=== PATIENT | female | born 1950 | race Caucasian/White ===

== ENCOUNTER 2019-07-16 15:25 | Emergency (ER) | payer MEDICARE, OTHER ==
[2019-07-16 15:49] VITALS: BP 158/85; PULSE 70
--- NOTE | 2019-07-16 16:17 | EDM.PDOC ---
ED HPI GENERAL MEDICAL PROBLEM - General Chief Complaint: Lower Extremity Injury/Pain Stated Complaint: R LEG PAIN Time Seen by Provider: 07/16/19 15:53 Source of Information: Reports: Patient History Limitations: Reports: No Limitations - History of Present Illness INITIAL COMMENTS - FREE TEXT/NARRATIVE: Patient is a 69-year-old female who presents to the emergency department with a 4-day history of right upper leg pain. She describes it as a dull ache. Today while walking to the [facility], her pain worsened and she became acutely short of breath. She was able to continue onto the garden and finished her work, however she presents with concerned that she may have a DVT and/or PE. 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 She takes aspirin 325 mg daily for this. She denies any shortness of breath at this time. States that the episode passed rather quickly. She denies any noticeable warmth or swelling to her right leg over the last few days. She denies any chest pain at the time of the episode or at this time. Right Upper Leg Pain Score (Numeric/FACES): 3 - Related Data Allergies Allergy/AdvReac Type Severity Reaction Status Date / Time No Known Allergies Allergy Verified 07/16/19 15:59 Home Meds: Home Meds Famotidine [Pepcid] 20 mg PO DAILY #90 tablet 11/07/14 [Rx] Levothyroxine 25 mcg PO DAILY 11/07/14 [History] Rivaroxaban [Xarelto] 15 mg PO DAILY 11/07/14 [History] Past Medical History - Past Health History Medical/Surgical History: Denies Medical/Surgical History Cardiovascular History: Reports: Other (See Below) Other Cardiovascular History: DVT Social & Family History - Tobacco Use Smoking Status *Q: Never Smoker Review of Systems - Review of Systems Review Of Systems: See Below Constitutional: Reports: No Symptoms Eyes: Reports: No Symptoms Ears: Reports: No Symptoms Nose: Reports: No Symptoms Mouth/Throat: Reports: No Symptoms Respiratory: Reports: Shortness of Breath. Denies: Wheezing, Pleuritic Chest Pain, Cough Cardiovascular: Reports: No Symptoms. Denies: Chest Pain GI/Abdominal: Reports: No Symptoms Genitourinary: Reports: No Symptoms Musculoskeletal: Reports: Leg Pain Skin: Reports: No Symptoms Neurological: Reports: No Symptoms Psychiatric: Reports: No Symptoms ED EXAM, GENERAL - Physical Exam Exam: See Below Exam Limited By: No Limitations General Appearance: Alert, WD/WN, No Apparent Distress Respiratory/Chest: No Respiratory Distress, Lungs Clear, Normal Breath Sounds, No Accessory Muscle Use, Chest Non-Tender Cardiovascular: Normal Peripheral Pulses, Regular Rate, Rhythm, No Edema, No Gallop, No JVD, No Murmur, No Rub Extremities: Normal Inspection, Normal Range of Motion, No Pedal Edema, Normal Capillary Refill, Other (Mild tenderness to the right upper lateral leg. No obvious redness or warmth. There is an area of posterior ecchymosis that she states has been there for a few days after bumping her leg.) Neurological: Alert, Oriented, CN II-XII Intact, Normal Cognition, Normal Gait, Normal Reflexes, No Motor/Sensory Deficits Psychiatric: Normal Affect, Normal Mood Skin Exam: Warm, Dry, Intact, Normal Color, No Rash EKG INTERPRETATION EKG Date: 07/16/19 Time: 16:19 Rhythm: NSR Rate (Beats/Min): 71 [place]: Normal P-Wave: Present QRS: Normal ST-T: Normal QT: Normal EKG Interpretation Comments: Sinus rhythm at 74 bpm Decreased voltage precordial leads Diffuse T wave changes EKG interpreted by Dr. Yumi MD Course - Vital Signs Last Recorded V/S: Last Vital Signs Temp 98.0 F 07/16/19 15:47 Pulse 70 07/16/19 15:47 Resp 18 07/16/19 15:47 BP 158/85 H 07/16/19 15:47 Pulse Ox 96 07/16/19 15:47 - Orders/Labs/Meds Orders: Active Orders 24 hr Category Date Time Status EKG Documentation Completion [RC] STAT Care 07/16/19 16:10 Active Chest PE [Ang Chest] [CT] Stat Exams 07/16/19 17:16 Taken VL Duplex Lwr Ext Veins Ltd Rt [US] Stat Exams 07/16/19 16:06 Taken Labs: Laboratory Tests 07/16/19 07/16/19 07/16/19 Range/Units 16:19 16:19 16:19 WBC 7.60 (3.98-10.04) K/mm3 RBC 4.78 (3.98-5.22) M/mm3 Hgb 14.5 (11.2-15.7) gm/dl Hct 44.9 (34.1-44.9) % MCV 93.9 (79.4-94.8) fl MCH 30.3 (25.6-32.2) pg MCHC 32.3 (32.2-35.5) g/dl RDW Std Deviation 44.0 (36.4-46.3) fL Plt Count 267 (182-369) K/mm3 MPV 9.7 (9.4-12.3) fl Neut % (Auto) 68.6 (34.0-71.1) % Lymph % (Auto) 17.4 L (19.3-51.7) % [place] % (Auto) 9.7 (4.7-12.5) % Eos % (Auto) 3.7 (0.7-5.8) Baso % (Auto) 0.5 (0.1-1.2) % Neut # (Auto) 5.21 (1.56-6.13) K/mm3 Lymph # (Auto) 1.32 (1.18-3.74) K/mm3 [place] # (Auto) 0.74 H (0.24-0.36) K/mm3 Eos # (Auto) 0.28 (0.04-0.36) K/mm3 Baso # (Auto) 0.04 (0.01-0.08) K/mm3 D-Dimer, Quantitative 0.78 H (0.19-0.50) mg/L Sodium 141 (136-145) mEq/L Potassium 4.3 (3.5-5.1) mEq/L Chloride 106 (98-107) mEq/L Carbon Dioxide 25 (21-32) mEq/L Anion Gap 14.3 (5-15) BUN 12 (7-18) mg/dL Creatinine 0.8 (0.55-1.02) mg/dL Est Cr Clr Drug Dosing 58.12 mL/min Estimated GFR (MDRD) > 60 (>60) mL/min BUN/Creatinine Ratio 15.0 (14-18) Glucose 94 (80-115) mg/dL Calcium 8.4 L (8.5-10.1) mg/dL Total Bilirubin 0.5 (0.2-1.0) mg/dL AST 22 (15-37) U/L ALT 21 (14-59) U/L Alkaline Phosphatase 103 (46-116) U/L Troponin I < 0.017 (0.00-0.056) ng/mL Total Protein 6.7 (6.4-8.2) g/dl Albumin 3.6 (3.4-5.0) g/dl Globulin 3.1 gm/dL Albumin/Globulin Ratio 1.2 (1-2) Meds: Medications Discontinued Medications Generic Name Dose Route Start Last Admin Trade Name Freq PRN Reason Stop Dose Admin Sodium Chloride 1,000 mls @ 150 mls/hr 07/16/19 17:30 07/16/19 17:56 Normal Saline IV 150 mls/hr ASDIRECTED JESIKA Administration Sodium Chloride 100 mls @ 75 mls/hr 07/16/19 17:30 07/16/19 17:41 Normal Saline IV 75 mls/hr ASDIRECTED JESIKA Administration Iopamidol 100 ml 07/16/19 17:25 07/16/19 17:41 Isovue-370 (76%) IVPUSH 07/16/19 17:26 100 ml ONETIME ONE Administration Sodium Chloride 10 ml 07/16/19 17:25 07/16/19 17:41 Saline Flush FLUSH 10 ml ONETIME PRN Administration IV FLUSH - Re-Assessments/Exams Free Text/Narrative Re-Assessment/Exam: 07/16/19 18:16 Hematology was significant for d-dimer slightly elevated at 0.78. Was otherwise unremarkable. Ultrasound of the right leg was negative for any signs of DVT. CT angiogram of the chest showed no pulmonary emboli. Discussed these findings with the patient. Her right leg pain may be a result of muscle strain , however discussed that if this becomes an ongoing issue and does not improve over the next few days, would recommend that she follow-up in the clinic for ongoing management. Discharge instructions as documented. Departure - Departure Time of Disposition: 18:16 Disposition: Home, Self-Care 01 Condition: Good Clinical Impression: Leg pain, right - Discharge Information *PRESCRIPTION DRUG MONITORING PROGRAM REVIEWED*: No *COPY OF PRESCRIPTION DRUG MONITORING REPORT IN PATIENT AALIYAH: No Instructions: Muscle Strain, [id number] Referrals: Alea Zamora ART THERAPIST [Primary Care Provider] - Forms: ED Department Discharge Additional Instructions: You were seen in the emergency department today for right leg pain and an episode of shortness of breath earlier in the day. Your work-up included blood work, an EKG of your heart, and ultrasound of your right leg, and a CT angiogram of your chest. Your work-up was found to be overall normal. There is no signs of a blood clot in your leg. There are no blood clots found in the vasculature of your lungs. As we discussed, the pain in your right leg may be due to a muscle strain. You may use [id number] Tylenol as needed for pain. Heat over the area of pain may also be beneficial. If you find that over the next few days the pain is not improving or is worsening in any way, I would recommend that you follow-up with your primary care provider for further evaluation. If you experience any new or worsening symptoms of concern, please do not hesitate to return to the emergency department. Sepsis Event Note - Evaluation Sepsis Screening Result: No Definite Risk - Focused Exam Vital Signs: Vital Signs Temp Pulse Resp BP Pulse Ox 07/16/19 15:47 98.0 F 70 18 158/85 H 96 Date Exam was Performed: 07/16/19 Time Exam was Performed: 21:49 - My Orders Last 24 Hours: My Active Orders 07/16/19 16:06 VL Duplex Lwr Ext Veins Ltd Rt [US] Stat 07/16/19 16:10 EKG Documentation Completion [RC] STAT 07/16/19 17:16 Chest PE [Ang Chest] [CT] Stat - Assessment/Plan Last 24 Hours: My Active Orders 07/16/19 16:06 VL Duplex Lwr Ext Veins Ltd Rt [US] Stat 07/16/19 16:10 EKG Documentation Completion [RC] STAT 07/16/19 17:16 Chest PE [Ang Chest] [CT] Stat
[2019-07-16] MEDS ORDERED: Sodium Chloride 0.9% 10 ML Syringe FLUSH PRN (17:25)
[2019-07-16] MEDS ORDERED: Iopamidol 755 Mg/ML 100 ML Bottle IVPUSH ONE (17:25)
[2019-07-16] MEDS ORDERED: Sodium Chloride 0.9% 1,000 ML IV SCH (17:30)
[2019-07-16] MEDS ORDERED: Sodium Chloride 0.9% 100 ML IV SCH (17:30)
--- NOTE | 2019-07-17 10:03 | US ---
Right lower extremity deep venous ultrasound: Duplex and color Doppler evaluation was obtained of the right common femoral, proximal greater saphenous, superficial femoral, popliteal, posterior tibial and peroneal veins. Left common femoral vein was also evaluated. Comparison: No prior venous imaging is available. Findings: Normal phasic flow, augmentation and compression is seen. No ultrasound abnormality is noted within the lateral mid thigh described as area of pain. Impression: 1. No evidence of deep venous thrombosis within the right lower extremity or within the left common femoral vein. Diagnostic code #1 This report was dictated in MDT I agree with preliminary report from [facility], finalized on 07/16/19, 6:50 PM Central Daylight Time
--- NOTE | 2019-07-17 10:18 | CT ---
CT chest Technique: Multiple axial sections were obtained from above the lip lung apices inferiorly through the lung bases. Intravenous contrast was utilized. Study has been performed as a pulmonary angiogram protocol. Comparison: Prior CT chest exam of 07/30/12. Findings: Large hiatal hernia is noted. Pulmonary arteries are well opacified. No filling defects are seen to indicate pulmonary embolism. Aorta shows atherosclerotic calcification without aneurysm. No mediastinal adenopathy is seen. Right hilar lymph node is seen believed to be stable. Heart size is slightly enlarged. Cyst is noted within the right lobe of the liver measuring 9 mm. Cysts are noted within both kidneys measuring 4.2 cm on the right and 3.0 cm on the left. Previous cholecystectomy is noted. Lung window settings were reviewed. No acute parenchymal change is appreciated. Mild fibrosis is noted within both lung bases. Nodule is seen next to the right major fissure measuring about 8 mm in size which is believed to be present on prior study. 2nd nodule are noted within the right upper lung measuring 6 mm in size and also felt to be stable from previous exam. Bone window settings were reviewed. Scattered degenerative change noted within the spine with disc space narrowing and endplate spurring. Scoliosis is also noted. No acute osseous finding is appreciated. Impression: 1. Multiple findings as described above. 2. No findings of pulmonary embolism are seen. 3. Nothing acute is appreciated on CT study of the chest. Diagnostic code #3 This report was dictated in MDT I agree with preliminary report from [facility], finalized on 07/16/19, 7:01 PM Central Daylight Time
== END 2019-07-16 18:28 | disposition home or self-care (01) ==
LOC: JD.ED 15:25
DX: M79.651 Pain in right thigh (principal); Z79.01 Long term (current) use of anticoagulants; Z79.899 Other long term (current) drug therapy; Z86.718 Personal history of other venous thrombosis and embolism; Z79.82 Long term (current) use of aspirin
CPT/HCPCS: 36415; 71275; 80053; 84484; 85025; 85379; 93005; 93971; 99284; J7030; J7050; Q9967; 93010; 99282

== ENCOUNTER 2020-09-26 07:32 | Inpatient (IN) | payer MEDICARE, OTHER ==
[2020-09-26] MEDS ORDERED: Iopamidol 612 MG/ML 100 ML Bottle IVPUSH ONE (09:08)
[2020-09-26] MEDS ORDERED: Sodium Chloride 0.9% 10 ML Syringe FLUSH ONE (09:08)
[2020-09-26] MEDS ORDERED: Sodium Chloride 0.9% 1,000 ML IV SCH (09:15)
--- NOTE | 2020-09-26 09:24 | CR ---
Chest: Portable view of the chest was obtained. Comparison: No prior chest x-ray is available, prior chest CT of 07/16/19 is available. Left hemidiaphragm is not well seen on this exam. Possible left basilar atelectasis may be present. Lungs otherwise are clear. Heart size and mediastinum are within normal limits for portable technique. Scoliosis is noted within the spine. Impression: 1. Poorly seen left hemidiaphragm with possible left basilar atelectasis. 2. Scoliosis is noted. No other acute abnormality is appreciated. Diagnostic code #2
--- NOTE | 2020-09-26 09:51 | EDM.PDOC ---
ED HPI GENERAL MEDICAL PROBLEM - General Chief Complaint: Chest Pain Stated Complaint: CHEST PAIN Time Seen by Provider: 09/26/20 07:46 Source of Information: Reports: Patient, RN Notes Reviewed - History of Present Illness INITIAL COMMENTS - FREE TEXT/NARRATIVE: 70 yr old female has been sent here from day surgery for evaluation of chest pain that started last evening, states he chest started feeling heavy about 12 hrs ago. Denied shortness of breath at time of exam but does have pleuritic pain with deep inspiration. Has a chronic dry cough not worse than usual. No fever or chills, nausea or vomiting. No known cardiac hx, hx of DVT lower extremity about 4 to 5 yrs ago. Also has hx of hiatal hernia. Left Chest Pain Score (Numeric/FACES): 2 - Related Data Allergies Allergy/AdvReac Type Severity Reaction Status Date / Time tramadol AdvReac Severe Headache Verified 09/26/20 07:44 Home Meds: Home Meds Levothyroxine 75 mcg PO DAILY 11/07/14 [History] Omeprazole 40 mg PO DAILY 09/26/20 [History] atorvaSTATin [Lipitor] 0 mg PO DAILY 09/26/20 [History] Past Medical History - Past Health History Medical/Surgical History: Denies Medical/Surgical History Cardiovascular History: Reports: Other (See Below) Other Cardiovascular History: DVT Social & Family History - Tobacco Use Tobacco Use Status *Q: Former Tobacco User Used Tobacco, but Quit: Yes Month/Year Tobacco Last Used: 1988 ED ROS GENERAL - Review of Systems Review Of Systems: See Below Constitutional: Denies: Fever, Chills, Diaphoresis HEENT: Reports: No Symptoms Respiratory: Reports: Pleuritic Chest Pain, Cough. Denies: Shortness of Breath, Wheezing Cardiovascular: Reports: Chest Pain GI/Abdominal: Denies: Abdominal Pain, Nausea, Vomiting Musculoskeletal: Reports: Back Pain. Denies: Shoulder Pain, Arm Pain Neurological: Reports: No Symptoms ED EXAM, GENERAL - Physical Exam Exam: See Below General Appearance: Alert, No Apparent Distress Throat/Mouth: Normal Inspection Head: Atraumatic Neck: Supple, Other (No JVD) Respiratory/Chest: No Respiratory Distress, Lungs Clear, Normal Breath Sounds. No: Respiratory Distress, Rales, Rhonchi, Wheezing Cardiovascular: Regular Rate, Rhythm GI/Abdominal: Soft, Non-Tender Back Exam: No: CVA Tenderness (L), CVA Tenderness (R) Extremities: No: Pedal Edema, Leg Pain, Increased Warmth, Redness Neurological: Alert, Oriented, No Motor/Sensory Deficits Skin Exam: Warm, Dry, Normal Color #1 Interpretation EKG Date: 09/26/20 Rhythm: NSR [place]: Normal P-Wave: Present QRS: Other (small q waves lead III) ST-T: Other (t wave inversion lead III and AVF) Course - Vital Signs Last Recorded V/S: Last Vital Signs Temp 98.3 F 09/26/20 09:30 Pulse 88 09/26/20 09:30 Resp 20 09/26/20 09:30 BP 127/73 09/26/20 09:30 Pulse Ox 92 L 09/26/20 09:30 - Orders/Labs/Meds Orders: Active Orders 24 hr Category Date Time Status Oxygen Therapy, ED [RC] ASDIRECTED Care 09/26/20 10:05 Active Sodium Chloride 0.9% [Normal Saline] 1,000 ml Med 09/26/20 09:15 Active IV ONETIME Medication Orders Sodium Chloride (Normal Saline) 1,000 mls @ 999 mls/hr IV ONETIME JESIKA Last Infusion: 09/26/20 10:10 Dose: 150 mls/hr Documented by: Admin: 09/26/20 09:30 Dose: 999 mls/hr Documented by: EMILY Labs: Laboratory Tests 09/26/20 09/26/20 09/26/20 Range/Units 07:21 07:21 07:21 WBC 9.81 (3.98-10.04) K/mm3 RBC 4.74 (3.98-5.22) M/mm3 Hgb 14.5 (11.2-15.7) gm/dl Hct 43.7 (34.1-44.9) % MCV 92.2 (79.4-94.8) fl MCH 30.6 (25.6-32.2) pg MCHC 33.2 (32.2-35.5) g/dl RDW Std Deviation 42.5 (36.4-46.3) fL Plt Count 250 (182-369) K/mm3 MPV 10.0 (9.4-12.3) fl Neut % (Auto) 71.7 H (34.0-71.1) % Lymph % (Auto) 12.4 L (19.3-51.7) % [place] % (Auto) 14.5 H (4.7-12.5) % Eos % (Auto) 0.9 (0.7-5.8) Baso % (Auto) 0.4 (0.1-1.2) % Neut # (Auto) 7.03 H (1.56-6.13) K/mm3 Lymph # (Auto) 1.22 (1.18-3.74) K/mm3 [place] # (Auto) 1.42 H (0.24-0.36) K/mm3 Eos # (Auto) 0.09 (0.04-0.36) K/mm3 Baso # (Auto) 0.04 (0.01-0.08) K/mm3 D-Dimer, Quantitative (0.19-0.50) mg/L Sodium 140 (136-145) mEq/L Potassium 3.7 (3.5-5.1) mEq/L Chloride 104 (98-107) mEq/L Carbon Dioxide 24 (21-32) mEq/L Anion Gap 15.7 H (5-15) BUN 8 (7-18) mg/dL Creatinine 0.7 (0.55-1.02) mg/dL Est Cr Clr Drug Dosing 59.99 mL/min Estimated GFR (MDRD) > 60 (>60) mL/min BUN/Creatinine Ratio 11.4 L (14-18) Glucose 105 H (70-99) mg/dL Calcium 8.1 L (8.5-10.1) mg/dL Total Bilirubin 1.6 H (0.2-1.0) mg/dL AST 48 H (15-37) U/L ALT 34 (14-59) U/L Alkaline Phosphatase 153 H (46-116) U/L Troponin I < 0.017 (0.00-0.056) ng/mL Total Protein 7.3 (6.4-8.2) g/dl Albumin 3.4 (3.4-5.0) g/dl Globulin 3.9 gm/dL Albumin/Globulin Ratio 0.9 L (1-2) SARS-CoV-2 RNA (GAGE) (NEGATIVE) 09/26/20 09/26/20 Range/Units 07:21 09:55 WBC (3.98-10.04) K/mm3 RBC (3.98-5.22) M/mm3 Hgb (11.2-15.7) gm/dl Hct (34.1-44.9) % MCV (79.4-94.8) fl MCH (25.6-32.2) pg MCHC (32.2-35.5) g/dl RDW Std Deviation (36.4-46.3) fL Plt Count (182-369) K/mm3 MPV (9.4-12.3) fl Neut % (Auto) (34.0-71.1) % Lymph % (Auto) (19.3-51.7) % [place] % (Auto) (4.7-12.5) % Eos % (Auto) (0.7-5.8) Baso % (Auto) (0.1-1.2) % Neut # (Auto) (1.56-6.13) K/mm3 Lymph # (Auto) (1.18-3.74) K/mm3 [place] # (Auto) (0.24-0.36) K/mm3 Eos # (Auto) (0.04-0.36) K/mm3 Baso # (Auto) (0.01-0.08) K/mm3 D-Dimer, Quantitative 3.19 H (0.19-0.50) mg/L Sodium (136-145) mEq/L Potassium (3.5-5.1) mEq/L Chloride (98-107) mEq/L Carbon Dioxide (21-32) mEq/L Anion Gap (5-15) BUN (7-18) mg/dL Creatinine (0.55-1.02) mg/dL Est Cr Clr Drug Dosing mL/min Estimated GFR (MDRD) (>60) mL/min BUN/Creatinine Ratio (14-18) Glucose (70-99) mg/dL Calcium (8.5-10.1) mg/dL Total Bilirubin (0.2-1.0) mg/dL AST (15-37) U/L ALT (14-59) U/L Alkaline Phosphatase (46-116) U/L Troponin I (0.00-0.056) ng/mL Total Protein (6.4-8.2) g/dl Albumin (3.4-5.0) g/dl Globulin gm/dL Albumin/Globulin Ratio (1-2) SARS-CoV-2 RNA (GAGE) Negative (NEGATIVE) Meds: Medications Generic Name Dose Route Start Last Admin Trade Name Juan Diego PRN Reason Stop Dose Admin Sodium Chloride 1,000 mls @ 999 mls/hr 09/26/20 09:15 09/26/20 10:10 Normal Saline IV 150 mls/hr ONETIME JESIKA Infusion Discontinued Medications Generic Name Dose Route Start Last Admin Trade Name Juan Diego PRN Reason Stop Dose Admin Enoxaparin Sodium 100 mg 09/26/20 10:02 09/26/20 10:13 Enoxaparin 100 Mg/1 Ml Syringe SUBCUT 09/26/20 10:03 100 mg ONETIME ONE Administration Iopamidol 80 ml 09/26/20 09:08 09/26/20 09:34 Iopamidol 612 Mg/Ml 100 Ml Bottle IVPUSH 09/26/20 09:09 100 ml ONETIME ONE Administration Sodium Chloride 10 ml 09/26/20 09:08 09/26/20 09:34 Sodium Chloride 0.9% 10 Ml Syringe FLUSH 09/26/20 09:09 10 ml ONETIME ONE Administration - Re-Assessments/Exams Free Text/Narrative Re-Assessment/Exam: 09/26/20 10:00. Hx of hiatal hernia. Dr Pena suggested CT of chest to make sure she wasn't suffering from discomfort due to strangulated hernia. That has been ordered and done. 10:15. Dr Griffith has called. There is a hiatal hernia with no evidence of strangulation. However she does have findings of L PE, there is clot in the main pul. artery extending into the segmental branches of the L lower lobe pul artery. I have discussed this with Dr Murrieta, Hospitalist technical applications specialist. He does suggest getting an echo to check for R heart strain, if that is OK and not hypoxic should be OK to go home. will also get US of her LE to eval. potential clot load. 09/26/20 13:40. Echo report does not show any evidence of R heart strain. See report for details. Her LE US studies show clot obstruction of the L poplieteal artery with partial obstruction of the posterior tibial and peroneal veins. She had been dropping sats at times to low 80's, unclear if these were good readings, her nurse did put her on 2 L NC. Will stop her oxygen, see how she does on room air. 14:47. Sats have been running 88 to 93 room air. RT got her up to walk and she did drop her sats as low as 84 % demonstrating need, at least for now for oxygen. Have asked Case Management to get involved regarding hospital admission. 14:52. She does meet criteria for inpatient admission. That is what we will do. Departure - Departure Time of Disposition: 14:50 Disposition: Admitted As Inpatient 67 Condition: Serious Clinical Impression: Hypoxia Pulmonary embolism Qualifiers: Pulmonary embolism type: unspecified Chronicity: acute Acute cor pulmonale presence: without acute cor pulmonale Qualified Code(s): I26.99 - Other pulmonary embolism without acute cor pulmonale DVT (deep venous thrombosis) Qualifiers: DVT location: lower extremity Affected thrombotic vein of extremity: popliteal Chronicity: acute Laterality: left Qualified Code(s): I82.432 - Acute embolism and thrombosis of left popliteal vein Referrals: Alea Zamora SORTING MACHINE ATTENDANT [Primary Care Provider] - Forms: ED Department Discharge Sepsis Event Note (ED) - Evaluation Sepsis Screening Result: No Definite Risk - Focused Exam Vital Signs: Vital Signs Temp Pulse Resp BP Pulse Ox 09/26/20 09:30 98.3 F 88 20 127/73 92 L 09/26/20 07:52 98.6 F 91 18 128/84 96 09/26/20 07:34 98.5 F 92 24 H 141/84 H 97 ED Communication - Discussed Case With (1) Discussed Case With (1): Admitting Provider (discussed with Dr Murrieta, Hospitalist, decision to admit at about 14:50.) - My Orders Last 24 Hours: My Active Orders 09/26/20 09:15 Sodium Chloride 0.9% [Normal Saline] 1,000 ml IV ONETIME 09/26/20 10:05 Oxygen Therapy, ED [RC] ASDIRECTED - Assessment/Plan Last 24 Hours: My Active Orders 09/26/20 09:15 Sodium Chloride 0.9% [Normal Saline] 1,000 ml IV ONETIME 09/26/20 10:05 Oxygen Therapy, ED [RC] ASDIRECTED
--- NOTE | 2020-09-26 09:54 | CT ---
CT chest Technique: Multiple axial sections were obtained through the chest. Intravenous contrast was utilized. Small amount of oral contrast has also been given. Comparison: Chest x-ray performed earlier on the same day and chest CT of 07/16/19. Findings: Moderately large hiatal hernia is seen. Contrast is seen to extend into the intra-abdominal stomach and small bowel. No findings of definite strangulation is seen within the hiatal hernia. Thoracic aorta shows atherosclerotic calcification with no aneurysm. Mediastinum and hilar regions show no adenopathy. There is evidence of pulmonary embolism within the left main pulmonary artery extending into the segmental branches within the left lower lobe pulmonary artery. Emboli are seen within the segmental branch within the left upper artery. More distal pulmonary emboli could be present although study was not performed as a pulmonary embolism exam to further define. Visualized upper abdominal structures show cysts within both kidneys as well as a cyst within the liver. Small partially visualized fat-containing right-sided anterior abdominal wall hernia is noted. Lungs show slight density within the lingula and left lower lung most likely representing areas of atelectasis. Lungs otherwise are clear. Scoliosis is seen within the spine with scattered degenerative change. No acute osseous abnormality is appreciated. Impression: 1. Pulmonary emboli within the distal left main pulmonary artery extending into the segmental branches of the left upper and left lower lung. More distal pulmonary emboli could be present but not well seen because this was not a pulmonary artery CT study. 2. Mild atelectasis within the left lung base and lingula. 3. Other findings as noted above which are felt to be less acute. Diagnostic code #5 Phone conversation was made after interpretation to Dr. Dominguez at around 09:40 AM on day of exam.
[2020-09-26] MEDS ORDERED: Enoxaparin 100 MG/1 ML Syringe SUBCUT ONE (10:02)
--- NOTE | 2020-09-26 12:28 | US ---
Bilateral lower extremity deep venous ultrasound: Duplex and color Doppler evaluation was obtained of the right and left common femoral, proximal greater saphenous, superficial femoral, popliteal, posterior tibial and peroneal veins. Comparison: No prior venous imaging is available. Findings: Right lower extremity shows normal phasic flow, augmentation and compression within the visualized veins. Left lower extremity shows lack of compression, phasic flow and augmentation within the popliteal vein compatible with obstructing thrombus. Partial clot is seen within the more distal posterior tibial and peroneal veins. Other portions of the superficial femoral and common femoral vein show no thrombosis. Impression: 1. Occlusive clot within the left popliteal vein with partial clot within the posterior tibial and peroneal veins. 2. No findings of deep venous thrombosis within the right lower extremity. Diagnostic code #5
[2020-09-26] MEDS ORDERED: Acetaminophen/HYDROcodone 325-5 MG Tab PO PRN (15:55)
[2020-09-26] MEDS ORDERED: Ondansetron 4 MG/2 ML SDV IV PRN (15:55)
[2020-09-26] MEDS ORDERED: Docusate Sodium 100 MG Cap PO PRN (15:55)
[2020-09-26] MEDS ORDERED: Ondansetron 4 MG Tab.DIS PO PRN (15:55)
[2020-09-26] MEDS ORDERED: Acetaminophen 325 MG Tab PO PRN (15:55)
[2020-09-26] MEDS ORDERED: Sodium Chloride 0.9% 10 ML Syringe FLUSH PRN (15:55)
--- NOTE | 2020-09-26 16:16 | PCM.HP.2 ---
H&P History of Present Illness - General Date of Service: 09/26/20 Admit Problem/Dx: Admission Diagnosis/Problem Admission Diagnosis/Problem Pulmonary embolism Source of Information: Patient, Provider - History of Present Illness Initial Comments - Free Text/Narative: Patient is a 70-year-old female with a past medical history as listed below which does include factor V Leiden with previous known lower extremity clots who presented to the [facility] emergency department after complaining of pl eurisy while in preop evaluation for a screening colonoscopy this morning. The patient presented to preop for a regular procedure. Upon questioning and review of symptoms, the patient revealed that she was experiencing some intermittent shortness of breath especially with activity and ongoing pleurisy for the better part of 2 to 3 weeks. Vital signs were normal, it was noted that the patient was borderline tachycardic. Due to her complaint of chest pain she was sent to the emergency department for evaluation. In the ER she was noted to be in the low 90s on room air but with activity would dip slightly down to approximately 88%. She was placed on 2 L of supplemental oxygen. EKG was reassuring. No evidence of acute myocardial infarction. No obvious gross pathology was noted on chest x-ray. CT examination of the chest with IV contrast was notable for central pulmonary embolism within the left main pulmonary artery extending into segmental branches. As the patient was only mildly hypoxic, the emergency department was initially entertaining getting an echocardiogram to ensure no evidence of right heart strain, and to discuss with case management, the possibility of arranging for oxygen and eventually being discharged from the emergency department in good standing and stable condition after being anticoagulated. Case management has asked for additional time in getting home oxygen, and the patient herself is requesting to stay overnight for closer observation in the interim. Earlier in the day the patient was given weight-based Lovenox for coverage. Lower extremity ultrasound studies were performed. The patient has notable clot burden in most of the lower extremity smaller venous vessels starting from the popliteal vein and extending caudad. She has clots noted in the posterior tibial and peroneal veins. No clot burden was noted in the right lower extremity or within either of the femoral vessels. 14 point review of systems was reviewed with the patient and only pertinent for occasional pleurisy and some shortness of breath while walking. Otherwise complete review of systems is normal. CODE STATUS reviewed and she wishes to be full code. Left Chest Pain Score (Numeric/FACES): 2 - Related Data Allergies/Adverse Reactions: Allergies Allergy/AdvReac Type Severity Reaction Status Date / Time tramadol AdvReac Severe Headache Verified 09/26/20 07:44 Home Medications: Home Meds Levothyroxine 75 mcg PO DAILY 11/07/14 [History] Omeprazole 40 mg PO DAILY 09/26/20 [History] atorvaSTATin [Lipitor] 0 mg PO DAILY 09/26/20 [History] Past Medical History Cardiovascular History: Reports: Other (See Below) Other Cardiovascular History: DVT Hematologic History: Reports: Other (See Below) (Factor V Leiden deficiency) Social & Family History - Tobacco Use Tobacco Use Status *Q: Former Tobacco User Used Tobacco, but Quit: Yes Month/Year Tobacco Last Used: 1988 H&P Review of Systems - Review of Systems: Review Of Systems: Comprehensive ROS is negative, except as noted in HPI. Exam - Exam Exam: See Below - Vital Signs Vital Signs: Last Vital Signs Temp 98.3 F 09/26/20 09:30 Pulse 88 09/26/20 09:30 Resp 20 09/26/20 09:30 BP 127/73 09/26/20 09:30 Pulse Ox 91 L 09/26/20 14:20 Weight: 213 lb - Exam Physical Exam Comments:: General: Awake and alert, in no apparent distress. Nontoxic-appearing. HEENT: Normocephalic, atraumatic. Extra ocular muscles intact. Pupils equal and reactive to light. Nares are patent. Oropharynx clear without erythema or exudate. Tongue is midline. Neck: Supple without lymphadenopathy. No goiter. Trachea midline. Heart: Regular rate and rhythm. S1 and S2 heard without murmur or extrasystoles. Lungs: Clear to auscultation bilaterally. No wheezing, rales, rhonchi. Abdomen: Soft, nontender, nondistended. Positive bowel sounds. No CVA t enderness. No suprapubic tenderness. Extremities: Warm and perfused. No clubbing, cyanosis, or edema. Integument: No obvious rash or jaundice. No lymphadenopathy. Neurologic: Cranial nerves II through XII grossly intact. No obvious gross motor or sensory deficits. Musculoskeletal: No obvious joint abnormalities, effusions or range of motion deficits. Psychiatric: Normal mood and affect. - Patient Data Lab Results Last 24 hrs: Laboratory Results - last 24 hr 09/26/20 09/26/20 09/26/20 Range/Units 07:21 07:21 07:21 WBC 9.81 (3.98-10.04) K/mm3 RBC 4.74 (3.98-5.22) M/mm3 Hgb 14.5 (11.2-15.7) gm/dl Hct 43.7 (34.1-44.9) % MCV 92.2 (79.4-94.8) fl MCH 30.6 (25.6-32.2) pg MCHC 33.2 (32.2-35.5) g/dl RDW Std Deviation 42.5 (36.4-46.3) fL Plt Count 250 (182-369) K/mm3 MPV 10.0 (9.4-12.3) fl Neut % (Auto) 71.7 H (34.0-71.1) % Lymph % (Auto) 12.4 L (19.3-51.7) % Dolores % (Auto) 14.5 H (4.7-12.5) % Eos % (Auto) 0.9 (0.7-5.8) Baso % (Auto) 0.4 (0.1-1.2) % Neut # (Auto) 7.03 H (1.56-6.13) K/mm3 Lymph # (Auto) 1.22 (1.18-3.74) K/mm3 Dolores # (Auto) 1.42 H (0.24-0.36) K/mm3 Eos # (Auto) 0.09 (0.04-0.36) K/mm3 Baso # (Auto) 0.04 (0.01-0.08) K/mm3 D-Dimer, Quantitative (0.19-0.50) mg/L Sodium 140 (136-145) mEq/L Potassium 3.7 (3.5-5.1) mEq/L Chloride 104 (98-107) mEq/L Carbon Dioxide 24 (21-32) mEq/L Anion Gap 15.7 H (5-15) BUN 8 (7-18) mg/dL Creatinine 0.7 (0.55-1.02) mg/dL Est Cr Clr Drug Dosing 59.99 mL/min Estimated GFR (MDRD) > 60 (>60) mL/min BUN/Creatinine Ratio 11.4 L (14-18) Glucose 105 H (70-99) mg/dL Calcium 8.1 L (8.5-10.1) mg/dL Total Bilirubin 1.6 H (0.2-1.0) mg/dL AST 48 H (15-37) U/L ALT 34 (14-59) U/L Alkaline Phosphatase 153 H (46-116) U/L Troponin I < 0.017 (0.00-0.056) ng/mL Total Protein 7.3 (6.4-8.2) g/dl Albumin 3.4 (3.4-5.0) g/dl Globulin 3.9 gm/dL Albumin/Globulin Ratio 0.9 L (1-2) SARS-CoV-2 RNA (GAGE) (NEGATIVE) 09/26/20 09/26/20 Range/Units 07:21 09:55 WBC (3.98-10.04) K/mm3 RBC (3.98-5.22) M/mm3 Hgb (11.2-15.7) gm/dl Hct (34.1-44.9) % MCV (79.4-94.8) fl MCH (25.6-32.2) pg MCHC (32.2-35.5) g/dl RDW Std Deviation (36.4-46.3) fL Plt Count (182-369) K/mm3 MPV (9.4-12.3) fl Neut % (Auto) (34.0-71.1) % Lymph % (Auto) (19.3-51.7) % Dolores % (Auto) (4.7-12.5) % Eos % (Auto) (0.7-5.8) Baso % (Auto) (0.1-1.2) % Neut # (Auto) (1.56-6.13) K/mm3 Lymph # (Auto) (1.18-3.74) K/mm3 Dolores # (Auto) (0.24-0.36) K/mm3 Eos # (Auto) (0.04-0.36) K/mm3 Baso # (Auto) (0.01-0.08) K/mm3 D-Dimer, Quantitative 3.19 H (0.19-0.50) mg/L Sodium (136-145) mEq/L Potassium (3.5-5.1) mEq/L Chloride (98-107) mEq/L Carbon Dioxide (21-32) mEq/L Anion Gap (5-15) BUN (7-18) mg/dL Creatinine (0.55-1.02) mg/dL Est Cr Clr Drug Dosing mL/min Estimated GFR (MDRD) (>60) mL/min BUN/Creatinine Ratio (14-18) Glucose (70-99) mg/dL Calcium (8.5-10.1) mg/dL Total Bilirubin (0.2-1.0) mg/dL AST (15-37) U/L ALT (14-59) U/L Alkaline Phosphatase (46-116) U/L Troponin I (0.00-0.056) ng/mL Total Protein (6.4-8.2) g/dl Albumin (3.4-5.0) g/dl Globulin gm/dL Albumin/Globulin Ratio (1-2) SARS-CoV-2 RNA (GAGE) Negative (NEGATIVE) Result Diagrams: 09/26/20 07:21 09/26/20 07:21 Imaging Impressions Last 24 hrs: Chest x-ray personally reviewed. No active cardiopulmonary disease noted. CT angio of the chest notable for left main pulmonary artery pulmonary embolism. Sepsis Event Note - Evaluation Sepsis Screening Result: No Definite Risk - Focused Exam Vital Signs: Vital Signs Temp Pulse Resp BP Pulse Ox Pulse Ox 09/26/20 14:20 91 L 09/26/20 09:30 98.3 F 88 20 127/73 92 L 09/26/20 07:52 98.6 F 91 18 128/84 96 09/26/20 07:34 98.5 F 92 24 H 141/84 H 97 Problem List Initiated/Reviewed/Updated: Yes Orders Last 24hrs: Active Orders 24 hr Category Date Time Status Patient Status [ADT] Routine ADT 09/26/20 15:16 Active Oxygen Therapy [RC] PRN Care 09/26/20 15:55 Ordered Oxygen Therapy, ED [RC] ASDIRECTED Care 09/26/20 10:05 Active Pulse Oximetry [RC] CONTINUOUS Care 09/26/20 15:55 Ordered Up With Assistance [RC] ASDIRECTED Care 09/26/20 15:55 Ordered VTE/DVT Education [RC] PER UNIT ROUTINE Care 09/26/20 15:55 Ordered Vital Signs [RC] Q4H Care 09/26/20 15:55 Ordered Acetaminophen [TylenoL] Med 09/26/20 15:55 Ordered 650 mg PO Q4H PRN Acetaminophen/HYDROcodone [[place] 325-5 MG] Med 09/26/20 15:55 Ordered 1 tab PO Q4H PRN Docusate Sodium [Colace] Med 09/26/20 15:55 Ordered 100 mg PO BID PRN Levothyroxine Med 09/27/20 09:00 Ordered 75 mcg PO DAILY Omeprazole [Omeprazole] Med 09/27/20 09:00 Ordered 40 mg PO DAILY Ondansetron [Zofran ODT] Med 09/26/20 15:55 Ordered 4 mg PO Q4H PRN Ondansetron [Zofran] Med 09/26/20 15:55 Ordered 4 mg IV Q4H PRN Rivaroxaban [Xarelto] Med 09/26/20 21:00 Ordered 15 mg PO BID Sodium Chloride 0.9% [Normal Saline] 1,000 ml Med 09/26/20 09:15 Active IV ONETIME Sodium Chloride 0.9% [Saline Flush] Med 09/26/20 15:55 Ordered 10 ml FLUSH ASDIRECTED PRN atorvaSTATin Med 09/27/20 09:00 Ordered 40 mg PO DAILY Saline Lock Insert [OM.PC] Routine Oth 09/26/20 15:55 Ordered Resuscitation Status Routine Resus Stat 09/26/20 15:55 Ordered Medication Orders Acetaminophen (Acetaminophen 325 Mg Tab) 650 mg PO Q4H PRN PRN Reason: Pain (Mild 1-3)/fever Hydrocodone Bitart/Acetaminophen (Acetaminophen/Hydrocodone 325-5 Mg Tab) 1 tab PO Q4H PRN PRN Reason: Pain (moderate 4-6) Docusate Sodium (Docusate Sodium 100 Mg Cap) 100 mg PO BID PRN PRN Reason: Constipation Sodium Chloride (Normal Saline) 1,000 mls @ 999 mls/hr IV ONETIME JESIKA Last Infusion: 09/26/20 10:10 Dose: 150 mls/hr Documented by: Admin: 09/26/20 09:30 Dose: 999 mls/hr Documented by: EMILY Levothyroxine Sodium (Levothyroxine 25 Mcg Tab) 75 mcg PO DAILY [facility] Non-Formulary Medication (Atorvastatin) 40 mg PO DAILY [facility] Non-Formulary Medication (Omeprazole [Omeprazole]) 40 mg PO DAILY [facility] Ondansetron HCl (Ondansetron 4 Mg/2 Ml Sdv) 4 mg IV Q4H PRN PRN Reason: Nausea/Vomiting Ondansetron HCl (Ondansetron 4 Mg Tab.Dis) 4 mg PO Q4H PRN PRN Reason: nausea, able to take PO Rivaroxaban (Rivaroxaban 15 Mg Tab) 15 mg PO BID [facility] Sodium Chloride (Sodium Chloride 0.9% 10 Ml Syringe) 10 ml FLUSH ASDIRECTED PRN PRN Reason: Keep Vein Open Assessment/Plan Comment:: 70-year-old female with a past medical history notable for factor V Leiden deficiency who presents to the [facility] emergency department after screeni ng questions prior to outpatient colonoscopy for pleurisy and chest pain, and found to have left-sided main pulmonary artery embolism. 1. Acute pulmonary embolism. In the setting of factor V Leiden deficiency not on systemic anticoagulation. Apparently the patient was taken off systemic anticoagulation within 6 to 9 months after her previous DVT. The patient has been taking aspirin based upon s ome other providers orders. The risks and benefits of systemic anticoagulation in general were reviewed with the patient as well as those specific to warfarin, Xarelto and Eliquis. It was clearly stated that due to her hypercoagulable state the patient requires systemic anticoagulation for life which she now understands the reasoning for. After an informed conversation the patient has opted for Xarelto therapy. Therefore we will begin loading at 15 mg twice daily for 21 days and then transition to 20 mg nightly. Dosing will begin tonight roughly around 9 PM as the patient received weight-based Lovenox earlier this morning. We will monitor the patient on telemetry as well as oximetry. Echocardiogram negative for right heart strain. 2. Multiple DVTs. Plan as above as per systemic anticoagulation. All other medical comorbidities are stable and nonactive conditions, will continue home medications at regular dose. CODE STATUS: Full code. Hypercoagulable prophylaxis; as noted above with Xarelto. - Mortality Measure Prognosis:: Good
[2020-09-26] MEDS: Rivaroxaban 15 MG Tab PO SCH (21:41)
[2020-09-27] MEDS ORDERED: Pantoprazole 40 MG Tab.CR PO SCH (09:00)
[2020-09-27] MEDS ORDERED: atorvaSTATin 20 MG Tab PO SCH (09:00)
[2020-09-27] MEDS ORDERED: Levothyroxine 75 MCG Tab PO SCH (09:00)
[2020-09-27] MEDS ORDERED: atorvaSTATin 40 MG Tab PO SCH (09:00)
[2020-09-27] MEDS: Rivaroxaban 15 MG Tab PO SCH (09:19)
--- NOTE | 2020-09-27 09:22 | PCM.DCSUM1 ---
Discharge Summary - Hospital Course Free Text/Narrative:: 70-year-old female with a past medical history notable for factor V Leiden deficiency who presents to the [facility] emergency department after screening questions prior to outpatient colonoscopy for pleurisy and chest pain, and found to have left-sided main pulmonary artery embolism. 1. Acute pulmonary embolism. In the setting of factor V Leiden deficiency not on systemic anticoagulation. Apparently the patient was taken off systemic anticoagulation within 6 to 9 months after her previous DVT. The patient has been taking aspirin based upon some other providers orders. The risks and benefits of systemic anticoagulation in general were reviewed with the patient as well as those specific to warfarin, Xarelto and Eliquis. It was clearly stated that due to her hypercoagulable state the patient requires systemic anticoagulation for life which she now understands the reasoning for. After an informed conversation the patient has opted for Xarelto therapy. Therefore we began loading at 15 mg twice daily for 21 days and then will transition to 20 mg nightly. She was monitored on telemetry as well as oximetry. Echocardiogram negative for right heart strain. 2. Multiple DVTs involving the left leg, within the peroneal, posterior tibial and popliteal veins. Plan as above as per systemic anticoagulation. CODE STATUS: Full code. Hypercoagulable prophylaxis; as noted above with Xarelto. HPI Initial Comments: Patient is a 70-year-old female with a past medical history as listed below which does include factor V Leiden with previous known lower extremity clots who presented to the [facility] emergency department after complaining of pleurisy while in preop evaluation for a screening colonoscopy this morning. The patient presented to preop for a regular procedure. Upon questioning and r eview of symptoms, the patient revealed that she was experiencing some intermittent shortness of breath especially with activity and ongoing pleurisy for the better part of 2 to 3 weeks. Vital signs were normal, it was noted that the patient was borderline tachycardic. Due to her complaint of chest pain she was sent to the emergency department for evaluation. In the ER she was noted to be in the low 90s on room air but with activity would dip slightly down to approximately 88%. She was placed on 2 L of supplemental oxygen. EKG was reassuring. No evidence of acute myocardial infarction. No obvious gross pathology was noted on chest x-ray. CT examination of the chest with IV contrast was notable for central pulmonary embolism within the left main pulmonary artery extending into segmental branches. As the patient was only mildly hypoxic, the emergency department was initially entertaining getting an echocardiogram to ensure no evidence of right heart strain, and to discuss with case management, the possibility of arranging for oxygen and eventually being discharged from the emergency department in good standing and stable condition after being anticoagulated. Case management has asked for additional time in getting home oxygen, and the patient herself is requesting to stay overnight for closer observation in the interim. Earlier in the day the patient was given weight-based Lovenox for coverage. Lower extremity ultrasound studies were performed. The patient has notable clot burden in most of the lower extremity smaller venous vessels starting from the popliteal vein and extending caudad. She has clots noted in the posterior tibial and peroneal veins. No clot burden was noted in the right lower extremity or within either of the femoral vessels. 14 point review of systems was reviewed with the patient and only pertinent for occasional pleurisy and some shortness of breath while walking. Otherwise complete review of systems is normal. CODE STATUS reviewed and she wishes to be full code. Left Chest Pain Score (Numeric/FACES): 2 - Related Data Allergies/Adverse Reactions: Allergies Allergy/AdvReac Type Severity Reaction Status Date / Time tramadol AdvReac Severe Headache Verified 09/26/20 07:44 Home Medications: Home Meds Levothyroxine 75 mcg PO DAILY 11/07/14 [History] Omeprazole 40 mg PO DAILY 09/26/20 [History] atorvaSTATin [Lipitor] 0 mg PO DAILY 09/26/20 [History] Past Medical History Cardiovascular History: Reports: Other (See Below) Other Cardiovascular History: DVT Hematologic History: Reports: Other (See Below) (Factor V Leiden deficiency) Social & Family History - Tobacco Use Tobacco Use Status *Q: Former Tobacco User Used Tobacco, but Quit: Yes Month/Year Tobacco Last Used: 1988 H&P Review of Systems - Review of Systems: Review Of Systems: Comprehensive ROS is negative, except as noted in HPI. Exam - Exam Exam: See Below - Vital Signs Vital Signs: Last Vital Signs Temp 98.3 F 09/26/20 09:30 Pulse 88 09/26/20 09:30 Resp 20 09/26/20 09:30 BP 127/73 09/26/20 09:30 Pulse Ox 91 L 09/26/20 14:20 Weight: 213 lb - Exam Physical Exam Comments:: General: Awake and alert, in no apparent distress. Nontoxic-appearing. HEENT: Normocephalic, atraumatic. Extra ocular muscles intact. Pupils equal and reactive to light. Nares are patent. Oropharynx clear without erythema or exudate. Tongue is midline. Neck: Supple without lymphadenopathy. No goiter. Trachea midline. Heart: Regular rate and rhythm. S1 and S2 heard without murmur or extrasystoles. Lungs: Clear to auscultation bilaterally. No wheezing, rales, rhonchi. Abdomen: Soft, nontender, nondistended. Positive bowel sounds. No CVA tenderness. No suprapubic tenderness. Extremities: Warm and perfused. No clubbing, cyanosis, or edema. Integument: No obvious rash or jaundice. No lymphadenopathy. Neurologic: Cranial nerves II through XII grossly intact. No obvious gross motor or sensory deficits. Musculoskeletal: No obvious joint abnormalities, effusions or range of motion deficits. Psychiatric: Normal mood and affect. - Discharge Data Discharge Date: 09/27/20 Discharge Disposition: Home, Self-Care 01 Condition: Good - Referral to Home Health Primary Care Physician: Alea Zamora NP - Patient Instructions Diet: Usual Diet as Tolerated Activity: As Tolerated Other/Special Instructions: Activity and diet are as tolerated. Continue taking medications as indicated at time of discharge. You were now taking systemic blood thinners, please be mindful of any trauma or the possibility of spontaneous internal bleeding. Notify provider if any black or bloody stools, bloody urine or in the event you are sick and/or vomiting; if you have black or red emesis. If you sustain any trauma please report to an emergent care setting for an immediate evaluation. Follow-up with primary care provider within 1 to 2 weeks time. If you experience any signs or symptoms that warranted this adm ission please do not hesitate to call your primary care provider or present to an emergency setting for an immediate evaluation. - Discharge Plan *PRESCRIPTION DRUG MONITORING PROGRAM REVIEWED*: Not Applicable *COPY OF PRESCRIPTION DRUG MONITORING REPORT IN PATIENT AALIYAH: Not Applicable Prescriptions/Med Rec: Acetaminophen/oxyCODONE [Percocet 325-5 MG] 1 each PO Q6HR PRN #10 tab PRN Reason: Pain (Severe 7-10) Acetaminophen [Tylenol] 650 mg PO Q4H PRN #60 tablet PRN Reason: Pain (Mild 1-3)/fever Rivaroxaban [Xarelto] 15 mg PO BID #40 tablet Rivaroxaban [Xarelto] 20 mg PO DAILY #30 tablet Home Medications: Home Meds Levothyroxine 75 mcg PO DAILY 11/07/14 [History] Omeprazole 40 mg PO DAILY 09/26/20 [History] atorvaSTATin [Lipitor] 20 mg PO BEDTIME 09/26/20 [History] Acetaminophen [Tylenol] 650 mg PO Q4H PRN #60 tablet 09/27/20 [Rx] Acetaminophen/oxyCODONE [Percocet 325-5 MG] 1 each PO Q6HR PRN #10 tab 09/27/20 [Rx] Rivaroxaban [Xarelto] 15 mg PO BID #40 tablet 09/27/20 [Rx] Rivaroxaban [Xarelto] 20 mg PO DAILY #30 tablet 09/27/20 [Rx] Patient Handouts: Rivaroxaban oral tablets, Pulmonary Embolism, Deep Vein Thrombosis Referrals: Alea Zamora NP [Primary Care Provider] - 10/03/20 2:10 pm (Please arrive at 2:10 for check in) - Discharge Summary/Plan Comment DC Time >30 min.: Yes Total # of Minutes for Discharge Time: 35 - General Info Date of Service: 09/27/20 Admission Dx/Problem (Free Text: Admission Diagnosis/Problem Admission Diagnosis/Problem Pulmonary embolism Subjective Update: No acute events overnight. No new nursing concerns. Patient denies any current chest pain or pleurisy. Has some shortness of breath especially with exertion. No fever. No lower extremity pain any affected limb with multiple DVTs. - Patient Data Vitals - Most Recent: Last Vital Signs Temp 98.1 F 09/27/20 06:05 Pulse 86 09/27/20 06:05 Resp 18 09/27/20 06:05 BP 120/70 09/27/20 06:05 Pulse Ox 92 L 09/27/20 06:05 Weight - Most Recent: 215 lb 3.2 oz I&O - Last 24 hours: Intake & Output 09/26/20 09/27/20 09/27/20 22:59 06:59 14:59 Intake Total 200 400 Output Total 150 Balance 200 250 Lab Results - Last 24 hrs: Laboratory Results - last 24 hr 09/26/20 09/26/20 Range/Units 07:21 09:55 D-Dimer, Quantitative 3.19 H (0.19-0.50) mg/L SARS-CoV-2 RNA (GAGE) Negative (NEGATIVE) Med Orders - Current: Current Medications Acetaminophen (Acetaminophen 325 Mg Tab) 650 mg PO Q4H PRN PRN Reason: Pain (Mild 1-3)/fever Hydrocodone Bitart/Acetaminophen (Acetaminophen/Hydrocodone 325-5 Mg Tab) 1 tab PO Q4H PRN PRN Reason: Pain (moderate 4-6) Last Admin: 09/27/20 01:16 Dose: 1 tab Documented by: Atorvastatin Calcium (Atorvastatin 20 Mg Tab) 20 mg PO DAILY [facility] Docusate Sodium (Docusate Sodium 100 Mg Cap) 100 mg PO BID PRN PRN Reason: Constipation Levothyroxine Sodium (Levothyroxine 75 Mcg Tab) 75 mcg PO DAILY [facility] Ondansetron HCl (Ondansetron 4 Mg/2 Ml Sdv) 4 mg IV Q4H PRN PRN Reason: Nausea/Vomiting Ondansetron HCl (Ondansetron 4 Mg Tab.Dis) 4 mg PO Q4H PRN PRN Reason: nausea, able to take PO Pantoprazole Sodium (Pantoprazole 40 Mg Tab.Cr) 40 mg PO DAILY [facility] Rivaroxaban (Rivaroxaban 15 Mg Tab) 15 mg PO BID JESIKA Last Admin: 09/26/20 21:41 Dose: 15 mg Documented by: Sodium Chloride (Sodium Chloride 0.9% 10 Ml Syringe) 10 ml FLUSH ASDIRECTED PRN PRN Reason: Keep Vein Open Discontinued Medications Atorvastatin Calcium (Atorvastatin 40 Mg Tab) 40 mg PO DAILY [facility] Atorvastatin Calcium (Atorvastatin 20 Mg Tab) 20 mg PO DAILY [facility] Enoxaparin Sodium (Enoxaparin 100 Mg/1 Ml Syringe) 100 mg SUBCUT ONETIME ONE Stop: 09/26/20 10:03 Last Admin: 09/26/20 10:13 Dose: 100 mg Documented by: Sodium Chloride (Normal Saline) 1,000 mls @ 999 mls/hr IV ONETIME JESIKA Last Infusion: 09/26/20 10:10 Dose: 150 mls/hr Documented by: Iopamidol (Iopamidol 612 Mg/Ml 100 Ml Bottle) 80 ml IVPUSH ONETIME ONE Stop: 09/26/20 09:09 Last Admin: 09/26/20 09:34 Dose: 100 ml Documented by: Sodium Chloride (Sodium Chloride 0.9% 10 Ml Syringe) 10 ml FLUSH ONETIME ONE Stop: 09/26/20 09:09 Last Admin: 09/26/20 09:34 Dose: 10 ml Documented by: - Exam General: Reports: Alert, No Acute Distress Lungs: Reports: Clear to Auscultation, Normal Respiratory Effort, Other (Ambulation saturation trial conducted by myself was notable for desaturations to 85% on room air after 50 to 60 feet of ambulation. Patient started off at 91% on room air. Patient qualifies for home O2.) Cardiovascular: Reports: Tachycardia (Sinus tachycardia with ambulation) GI/Abdominal Exam: Normal Bowel Sounds, Soft, Non-Tender Extremities: Normal Inspection, Normal Range of Motion, Non-Tender Skin: Reports: Warm, Dry Neurological: Reports: No New Focal Deficit
[2020-09-27 12:11] VITALS: BP 116/66; PULSE 88
[2020-09-28] MEDS ORDERED: atorvaSTATin 20 MG Tab PO SCH (09:00)
== END 2020-09-27 12:23 | disposition home or self-care (01) | DRG 176 ==
LOC: JD.ED 07:32 → JD.MS 15:16
PROVIDERS: ADMIT Hospitalist; ATTEND Hospitalist
DX: I26.99 Other pulmonary embolism without acute cor pulmonale (principal); D68.51 Activated protein C resistance; R09.02 Hypoxemia; Z86.718 Personal history of other venous thrombosis and embolism; I82.452 Acute embolism and thrombosis of left peroneal vein; Z88.6 Allergy status to analgesic agent; I82.432 Acute embolism and thrombosis of left popliteal vein; Z20.822 Contact with and (suspected) exposure to COVID-19; I82.442 Acute embolism and thrombosis of left tibial vein; Z88.5 Allergy status to narcotic agent; Z79.890 Hormone replacement therapy; Z79.899 Other long term (current) drug therapy; Z87.891 Personal history of nicotine dependence; R07.9 Chest pain, unspecified; Z53.8 Procedure and treatment not carried out for other reasons; R07.89 Other chest pain
CPT/HCPCS: 36415; 71045; 71260; 80053; 84484; 85025; 85379; 93005; 93306; 93970; 96372; 99285; J1650; J7030; Q9967; U0002; 93010; 94760; 99222; 99239; 99284; A9270-GY

== ENCOUNTER → 2020-09-26 | Day surgery (SDC) | payer MEDICARE, OTHER ==
[~2020-09-26] MED LIST: Lactated Ringers 1,000 ML IV SCH; Lidocaine 1%/Sod Bicarbonate in NS 8.4% 1 ML Syringe IDERM PRN; Sodium Chloride 0.9% 10 ML Syringe FLUSH PRN
--- NOTE | 2020-09-26 07:58 | PCM.SN.2 ---
- Free Text/Narrative Note: Mrs. Alvarez presented this morning for scheduled colonoscopy but complained of chest pain that started bothering her last evening. She has had pain like this before; left sided chest pain and pressure not associated with exertion. Recent prior work-up for her symptoms has not shown evidence of myocardial ischemia. On review she reports dry cough for the past two weeks. She has not had a COVID vaccine or been diagnosed with COVID. She was taken to the emergency room for further evaluation. Vital signs are normal and she is in no acute distress. There is minor reproducible discomfort of palpation of the left anterior chest wall. Heart and lung sounds are normal with radial pulse indicating regular rate and rhythm. Although she finished her bowel prep we will cancel her elective colonoscopy and reschedule at a later date.
--- NOTE | 2020-09-26 08:20 | PCM.SN.2 ---
- Free Text/Narrative Note: This morning, Mrs Alvarez was complaining of chest discomfort that started last evening. She stated the pain lasted about 3 hours and she was contemplating coming to the ED last night before it subsided. Then this am on the way here she had another chest pain attack that lasted about 10 min. At this moment the patient states her chest feels "heavy with pressure" and she is slightly SOB as she is audibly mouth breathing. Her HR is also slightly elevated from her baseline clinic reading (from 80 to 95-105). She denies this could be anxiety related to her upcoming procedure and stated the pains started before she did her bowel prep. The pain supposedly radiates to the back and left shoulder. I ordered an EKG and had lab come to draw. I also described the situation to Dr Dominguez in ED and he felt the patient should also be evaluated before her elective procedure. CBC, CMP, and troponin were ordered and the patient was transferred to the ED for evaluation. I asked the ED to keep her NPO in case her evaluation was negative to give the option to Dr Pena to proceed with her colonoscopy if everyone was in agreement. Cruz Rey, MANAGER [employer]
[2020-09-26 10:07] VITALS: BP 152/72; PULSE 105
--- NOTE | 2020-09-26 10:37 | PCM.SN.2 ---
- Free Text/Narrative Note: Scanned records in [facility] from [place] indicate patient is heterozygous for Factor V Leiden mutation with history of lower extremity DVT and pulmonary emboli. She was previously on xarelto but is not currently anticoagulated. CT chest today indicates clinically significant pulmonary embolus and patient will be admitted by the medicine team for treatment.
--- NOTE | 2020-09-30 13:24 | PCM.SN.2 ---
#1 Interpretation EKG Date: 09/26/20 Rhythm: NSR Rate (Beats/Min): 92 [place]: Normal P-Wave: Present QRS: Other (small q waves lead III) ST-T: Normal (T wave inversion III and AVF) QT: Normal
--- NOTE | 2020-11-01 10:40 | PCM.SN.2 ---
Time Documentation #1 Interpretation EKG Date: 09/26/20 Rhythm: NSR Rate (Beats/Min): 92 P-Wave: Present QRS: Other (small q waves lead III) ST-T: Other (t wave inversion III and AVF)
== END ==
LOC: JD.SDS 06:53
PROVIDERS: ATTEND Surgery
DX: R07.89 Other chest pain (principal); I26.99 Other pulmonary embolism without acute cor pulmonale; Z88.6 Allergy status to analgesic agent; Z53.8 Procedure and treatment not carried out for other reasons
CPT/HCPCS: 93005

== ENCOUNTER 2021-02-13 07:42 | Day surgery (SDC) | payer MEDICARE, OTHER ==
--- NOTE | 2021-02-13 07:21 | PCM.PREANE ---
Preanesthetic Assessment - Procedure Proposed Procedure: Colonoscopy - Anesthesia/Transfusion/Family Hx Anesthesia History: Prior Anesthesia Without Reaction Family History of Anesthesia Reaction: No Transfusion History: No Prior Transfusion(s) - Review of Systems General: No Symptoms Pulmonary: No Symptoms Cardiovascular: Chest Pain (a year ago with PE), Dyspnea on Exertion Gastrointestinal: No Symptoms Neurological: No Symptoms Other: Reports: Thyroid Problems (hypothyroid) - Physical Assessment NPO Status Date: 02/12/21 NPO Status Time: 00:00 Height: 1.57 m ASA Class: 3 Mental Status: Alert & Oriented x3 Airway Class: Mallampati = 1 Dentition: Reports: Normal Dentition Thyro-Mental Finger Breadths: 3 Mouth Opening Finger Breadths: 3 ROM/Head Extension: Full Lungs: Clear to Auscultation, Normal Respiratory Effort Cardiovascular: Regular Rate, Regular Rhythm - Imaging/EKG Impressions: EKG NSR rate92 - Allergies Allergies/Adverse Reactions: Allergies Allergy/AdvReac Type Severity Reaction Status Date / Time No Known Allergies Allergy Verified 02/12/21 11:46 - Anesthesia Plan Pre-Op Medication Ordered: None - Acknowledgements Anesthesia Type Planned: MAC Pt an Appropriate Candidate for the Planned Anesthesia: Yes Alternatives and Risks of Anesthesia Discussed w Pt/Guardian: Yes Pt/Guardian Understands and Agrees with Anesthesia Plan: Yes PreAnesthesia Questionnaire - Past Health History Medical/Surgical History: Denies Medical/Surgical History HEENT History: Reports: Other (See Below) Other HEENT History: CONJUCTIVITIS Cardiovascular History: Reports: High Cholesterol, Other (See Below) Other Cardiovascular History: DVT Respiratory History: Reports: PE, SOB Gastrointestinal History: Reports: GERD, Other (See Below) Other Gastrointestinal History: [place] Genitourinary History: Reports: None [employer] History: Reports: Other (See Below) Other OB/BYN History: POSTMENOPAUSAL Musculoskeletal History: Reports: Back Pain, Chronic, Other (See Below) Other Musculoskeletal History: pinched nerve in the lower back Neurological History: Reports: Other (See Below) Other Neuro History: 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 HERNIATION, UPPER EXTREMITY TINGLING Psychiatric History: Reports: Other (See Below) Other Psychiatric History: INSOMNIA Endocrine/Metabolic History: Reports: Hypothyroidism Hematologic History: Reports: Other (See Below) Other Hematologic History: clotting disorder Immunologic History: Reports: None Oncologic (Cancer) History: Reports: None Dermatologic History: Reports: None - Infectious Disease History Infectious Disease History: Reports: None - Past Surgical History HEENT Surgical History: Reports: None Cardiovascular Surgical History: Reports: Varicose Respiratory Surgical History: Reports: None GI Surgical History: Reports: Cholecystectomy, Colonoscopy, Other (See Below) Other GI Surgeries/Procedures: hiatal herania repair Female Surgical History: Reports: None Male Surgical History: Reports: None Endocrine Surgical History: Reports: None Neurological Surgical History: Reports: None Musculoskeletal Surgical History: Reports: Knee Replacement, Other (See Below) Other Musculoskeletal Surgeries/Procedures:: LEFT TOTAL KNEE REPLACEMENT, RIGHT PARTIAL KNEE REPLACEMENT Oncologic Surgical History: Reports: None Dermatological Surgical History: Reports: None - SUBSTANCE USE Tobacco Use Status *Q: Former Tobacco User Tobacco Use Within Last Twelve Months: No Second Hand Smoke Exposure: No Days Per Week of Alcohol Use: 1 Number of Drinks Per Day: 0 Total Drinks Per Week: 0 Recreational Drug Use History: No - HOME MEDS Home Medications: Home Meds Acetaminophen [Tylenol] 650 mg PO Q4H PRN 02/12/21 [History] Calcium Carb/Vitamin D3/Vit K1 [Calcium + D Soft Chewable Tab] 1 tab PO DAILY 02/12/21 [History] Levothyroxine 75 mcg PO DAILY 02/12/21 [History] Melatonin 5 mg PO BEDTIME 02/12/21 [History] Omeprazole 40 mg PO DAILY 02/12/21 [History] Rivaroxaban [Xarelto] 20 mg PO DAILY 02/12/21 [History] atorvaSTATin Calcium [Lipitor] 20 mg PO BEDTIME 02/12/21 [History] - CURRENT (IN HOUSE) MEDS Current Meds: Current Medications Lactated Ringer's (Ringers, Lactated) 1,000 mls @ 125 mls/hr IV ASDIRECTED [facility] Stop: 02/13/21 23:00 Lidocaine/Sodium Bicarbonate (Lidocaine 1%/Sod Bicarbonate In Ns 8.4% 1 Ml Syringe) 0.25 ml IDERM ONETIME PRN PRN Reason: Prior to IV Start Stop: 02/13/21 18:00 Sodium Chloride (Sodium Chloride 0.9% 10 Ml Syringe) 10 ml FLUSH 0900,2100 [facility] Stop: 02/13/21 18:00
[~2021-02-13 07:42] MED LIST changes: +Lidocaine 1% 0 ML ONE; +Midazolam 1 MG/ML 2 ML SDV ONE; +Propofol 200 MG/20 ML SDV ONE; -Sodium Chloride 0.9% 10 ML Syringe FLUSH PRN; +Sodium Chloride 0.9% 10 ML Syringe FLUSH SCH; +ceFAZolin 1 GM Vial ONE; +fentaNYL 100 MCG/2 ML SDV ONE; +fentaNYL 250 MCG/5 ML SDV ONE
[2021-02-13] MEDS ORDERED: Propofol 200 MG/20 ML SDV ONE (08:36)
--- NOTE | 2021-02-13 08:49 | PCM.PRNOTE ---
- Free Text/Narrative Note: Date: 02/13/2021 Procedure: screening colonoscopy History: average risk of colon cancer, no prior history of polyps Endoscopist: Ruddy Pena MD Findings: adequate prep. Cecum reached. No polyps identified. Sigmoid diverticulosis. Detailed Report: The patient was taken to the endoscopy suite and placed in left lateral decubitus position. Timeout was performed and monitored anesthesia care was initiated. The anus appeared normal. Digital rectal exam was unremarkable. The colonoscope was inserted and advanced all the way to the cecum. The appendiceal orifice was well visualized. Prep was adequate. The scope was slowly withdrawn and mucosal surfaces carefully inspected. No polyps were identified. There was extensive diverticulosis confined to the bounds of the sigmoid colon. On retroflexion in the rectum, no hemorrhoidal disease was appreciated; a single hypertrophied anal papilla was visualized. Air was suctioned from the rectum prior to withdrawal of the scope. The patient tolerated the procedure well.
--- NOTE | 2021-02-13 08:53 | PCM48HPAN ---
Post Anesthesia Note - EVALUATION WITHIN 48HRS OF ANESTHETIC Vital Signs in Normal Range: Yes Patient Participated in Evaluation: Yes Respiratory Function Stable: Yes Airway Patent: Yes Cardiovascular Function Stable: Yes Hydration Status Stable: Yes Pain Control Satisfactory: Yes Nausea and Vomiting Control Satisfactory: Yes Mental Status Recovered: Yes Vital Signs: Last Vital Signs Temp 36.7 C 02/13/21 07:15 Pulse 80 02/13/21 07:15 Resp 16 02/13/21 07:15 BP 147/91 H 02/13/21 07:15 Pulse Ox 95 02/13/21 07:15
[2021-02-13] MEDS ORDERED: Lidocaine 1% 4 ML ONE (09:09)
[2021-02-13] MEDS ORDERED: Ondansetron 4 MG/2 ML SDV ONE (09:09)
[2021-02-13 09:29] VITALS: BP 144/85; PULSE 72
[2021-02-13] MEDS ORDERED: Dexamethasone 4 MG/ML 5 ML MDV ONE (09:37)
[2021-02-13] MEDS ORDERED: Lactated Ringers 0 ML ONE (09:59)
== END 2021-02-13 09:30 | disposition home or self-care (01) ==
LOC: JD.SDS 07:42
PROVIDERS: ATTEND Surgery
DX: Z12.11 Encounter for screening for malignant neoplasm of colon (principal); K57.30 Diverticulosis of large intestine without perforation or abscess without bleeding; K21.9 Gastro-esophageal reflux disease without esophagitis; E03.9 Hypothyroidism, unspecified; E78.5 Hyperlipidemia, unspecified; G47.00 Insomnia, unspecified; Z79.899 Other long term (current) drug therapy; Z98.890 Other specified postprocedural states; Z90.49 Acquired absence of other specified parts of digestive tract; Z79.890 Hormone replacement therapy; Z79.01 Long term (current) use of anticoagulants; Z87.891 Personal history of nicotine dependence
CPT/HCPCS: G0121; J2704; J3010; J7120; 00812; J0690; J1100; J2250; J2405

== ENCOUNTER 2021-06-12 14:55 | Day surgery (SDC) | payer MEDICARE, OTHER ==
[~2021-06-12 14:55] MED LIST changes: -Midazolam 1 MG/ML 2 ML SDV ONE; +Sodium Chloride 0.9% 10 ML Syringe FLUSH PRN; -ceFAZolin 1 GM Vial ONE; -fentaNYL 100 MCG/2 ML SDV ONE; -fentaNYL 250 MCG/5 ML SDV ONE
[2021-06-12] MEDS ORDERED: Propofol 200 MG/20 ML SDV ONE ×2 (16:43→17:13)
[2021-06-12] MEDS ORDERED: Lidocaine 1% 0 ML ONE (16:44)
[2021-06-12] MEDS ORDERED: Lidocaine 1% 6 ML ONE (17:13)
[2021-06-12 18:48] VITALS: BP 126/70; PULSE 76
== END 2021-06-12 18:35 | disposition home or self-care (01) ==
LOC: JD.SDS 14:55
PROVIDERS: ATTEND Surgery
DX: K21.00 Gastro-esophageal reflux disease with esophagitis, without bleeding (principal); K44.9 Diaphragmatic hernia without obstruction or gangrene; E78.5 Hyperlipidemia, unspecified; E03.9 Hypothyroidism, unspecified; G47.00 Insomnia, unspecified; E66.9 Obesity, unspecified; Z79.899 Other long term (current) drug therapy; Z79.890 Hormone replacement therapy; Z98.890 Other specified postprocedural states; Z87.891 Personal history of nicotine dependence
CPT/HCPCS: 43239; 88305; J2704; J7120; 00731; 99100

== ENCOUNTER 2022-01-04 17:50 | Emergency (ER) | payer MEDICARE, OTHER ==
[2022-01-04 18:55] VITALS: BP 156/86; PULSE 70
[2022-01-04] MEDS ORDERED: Ondansetron 4 MG/2 ML SDV IVPUSH ONE (19:29)
[2022-01-04] MEDS ORDERED: HYDROmorphone 1 MG/ML Syringe IVPUSH ONE (19:29)
[2022-01-04] MEDS ORDERED: Sodium Chloride 0.9% 1,000 ML IV SCH (20:00)
[2022-01-04] MEDS ORDERED: Iopamidol 612 MG/ML 100 ML Bottle IV ONE (21:00)
== END 2022-01-04 22:24 | disposition home or self-care (01) ==
LOC: JD.ED 17:50
DX: K43.6 Other and unspecified ventral hernia with obstruction, without gangrene (principal); E03.9 Hypothyroidism, unspecified; K21.9 Gastro-esophageal reflux disease without esophagitis; E66.9 Obesity, unspecified; Z68.33 Body mass index [BMI] 33.0-33.9, adult; Z87.891 Personal history of nicotine dependence; Z79.899 Other long term (current) drug therapy
CPT/HCPCS: 36415; 74177; 80053; 83690; 85025; 96361; 96374; 96375; 99284; J1170; J2405; J7030; Q9967

== ENCOUNTER 2022-05-14 10:41 | Day surgery (SDC) | payer MEDICARE, OTHER ==
[2022-05-14] MEDS ORDERED: HYDROmorphone 0.5 MG/0.5 ML Syringe IVPUSH ONE ×2 (11:12→13:04)
[2022-05-14] MEDS ORDERED: Ondansetron 4 MG/2 ML SDV IVPUSH ONE (11:12)
[2022-05-14] MEDS ORDERED: HYDROmorphone 1 MG/ML Syringe IVPUSH ONE (11:16)
[2022-05-14] MEDS ORDERED: Sodium Chloride 0.9% 10 ML Syringe FLUSH PRN (11:46)
[2022-05-14] MEDS ORDERED: Iopamidol 612 MG/ML 100 ML Bottle IVPUSH ONE (11:46)
[2022-05-14] MEDS ORDERED: Sodium Chloride 0.9% 1,000 ML IV ONE (12:04)
[2022-05-14] MEDS ORDERED: Bupivacaine 0.5%/EPINEPHrine 1:200,000 50 ML MDV ONE (16:49)
[2022-05-14] MEDS ORDERED: Lidocaine 1% with EPINEPHrine 1:100,000 20 ML MDV ONE (16:49)
[2022-05-14] MEDS ORDERED: Propofol 200 MG/20 ML SDV ONE (17:13)
[2022-05-14] MEDS ORDERED: Lidocaine 1% 2 ML ONE (17:13)
[2022-05-14] MEDS ORDERED: Rocuronium 50 MG/5 ML Vial ONE ×2 (17:13→17:54)
[2022-05-14] MEDS ORDERED: fentaNYL 100 MCG/2 ML SDV ONE ×2 (17:13→19:13)
[2022-05-14] MEDS ORDERED: ceFAZolin 2 GM Vial ONE (17:52)
[2022-05-14] MEDS ORDERED: Sugammadex Sodium 200 MG/2 ML VIAL ONE (18:07)
[2022-05-14] MEDS ORDERED: Ketorolac 30 MG/ML SDV ONE (18:48)
[2022-05-14] MEDS ORDERED: Ondansetron 4 MG/2 ML SDV ONE ×2 (18:48→19:06)
[2022-05-14] MEDS: fentaNYL 100 MCG/2 ML SDV IVPUSH PRN ×2 (19:15→19:20)
[2022-05-14] MEDS ORDERED: HYDROmorphone 0.5 MG/0.5 ML Syringe IVPUSH PRN (19:16)
[2022-05-14] MEDS ORDERED: Ondansetron 4 MG/2 ML SDV IVPUSH PRN (19:16)
[2022-05-14] MEDS ORDERED: Acetaminophen/oxyCODONE 325-5 MG Tab PO PRN (19:21)
[2022-05-14 20:37] VITALS: BP 120/57; PULSE 86
== END 2022-05-14 20:25 | disposition home or self-care (01) ==
LOC: JD.ED 10:41 → JD.SDS 17:15
PROVIDERS: ATTEND Surgery
DX: K43.0 Incisional hernia with obstruction, without gangrene (principal); K43.9 Ventral hernia without obstruction or gangrene; R07.89 Other chest pain; E78.00 Pure hypercholesterolemia, unspecified; Z79.899 Other long term (current) drug therapy; K21.9 Gastro-esophageal reflux disease without esophagitis; E03.9 Hypothyroidism, unspecified; E66.9 Obesity, unspecified; Z95.0 Presence of cardiac pacemaker; Z68.33 Body mass index [BMI] 33.0-33.9, adult; Z88.5 Allergy status to narcotic agent
CPT/HCPCS: 36415; 49592; 74177; 80053; 84484; 85025; 85379; 93005; 96361; 96374; 96375; 96376; 99285; J0690; J1170; J1885; J2405; J2704; J3010; J3490; J7030; Q9967; 93010; 99284; C1781